=== PATIENT | male | born 1930 ===

== ENCOUNTER 2018-05-17 16:25 | Inpatient (IN) | payer MEDICARE ==
[2018-05-17] MEDS ORDERED: Albuterol-Ipratrop 3 mg / 0.5 (3 ml) UD INH STA (17:00)
[2018-05-17] MEDS ORDERED: Oseltamivir 6 MG/ML PO STA (17:07)
[2018-05-17] MEDS ORDERED: Albuterol-Ipratrop 3 mg / 0.5 (3 ml) UD ONE ×2 (17:15→17:51)
--- NOTE | 2018-05-17 17:27 | ED PDOC ---
HPI: CCC, URI, Sore Throat Time Seen by Provider: 05/17/18 16:41 Chief Complaint (Nursing): GI Problem Chief Complaint (Provider): GI Problem History Per: Patient History/Exam Limitations: no limitations Onset/Duration Of Symptoms: Days (x1 day ) Current Symptoms Are (Timing): Still Present Additional Complaint(s): Patient is an 87 year old male with a past medical history of emphysema and BPH, who presents to the emergency department complaining of flu like illness, associated with cough that is productive of a lot of phlegm, onset x1 day ago. Patient states that he has been feeling fatigue, malaise, body ache, mild runny nose. He further reveals that he developed vomiting and some fever today. Patient has excessive lethargy and states that he did not have a fever until he arrived at the ED. He denies taking any medication and states that he quit smoking x10 years ago. PMD: Giovanny Berry Past Medical History Reviewed: Historical Data, Nursing Documentation, Vital Signs Vital Signs: Last Vital Signs Temp 101.6 F H 05/17/18 16:28 Pulse 124 H 05/17/18 17:07 Resp 24 05/17/18 17:07 BP 158/87 H 05/17/18 17:07 Pulse Ox 99 05/17/18 17:07 - Medical History PMH: Benign Prostatic Hyperplasia, Colonic Polyps, Emphysema (USES ONLY INHALER), Fractures (LEFT WRIST), Gastritis, HTN (TAKES NO MEDS) Denies: Chronic Kidney Disease, Seizures, Sleep Apnea, TIA - Surgical History Surgical History: Endoscopy - Family History Family History: States: Unknown Family Hx - Social History Current smoker - smoking cessation education provided: No Ex-Smoker (has not smoked in the last 12 months): Yes (quit x10 years ago ) - Immunization History Hx Tetanus Toxoid Vaccination: No Hx Influenza Vaccination: No Hx Pneumococcal Vaccination: No - Home Medications Home Medications: Ambulatory Orders Medication Instructions Recorded Azithromycin [Zithromax Tri-Sarthak] 500 mg PO DAILY #5 tablet 05/19/18 Methylprednisolone [Medrol Dose 4 mg PO DAILY #21 mg 05/19/18 Pack (21 tabs)] - Allergies Allergies/Adverse Reactions: Allergies Allergy/AdvReac Type Severity Reaction Status Date / Time Penicillins Allergy Severe ANAPHYLAXIS Verified 05/17/18 16:28 Review of Systems ROS Statement: Except As Marked, All Systems Reviewed And Found Negative Constitutional: Positive for: Fever, Malaise, Other (body ache; fatigue) ENT: Positive for: Nose Discharge Respiratory: Positive for: Cough, Sputum Gastrointestinal: Positive for: Vomiting Physical Exam - Reviewed Nursing Documentation Reviewed: Yes Vital Signs Reviewed: Yes - Physical Exam Appears: Positive for: In Acute Distress (febrile) Head Exam: Positive for: ATRAUMATIC, NORMOCEPHALIC Skin: Positive for: Warm (febrile), Dry Eye Exam: Positive for: EOMI, PERRL Neck: Positive for: Painless ROM, Supple Cardiovascular/Chest: Positive for: Edema (trace), Tachycardia (with regular rhythm ). Negative for: Murmur Respiratory: Positive for: Wheezing (scattered wheeze), Respiratory Distress (acute), Other (poor air movement) Gastrointestinal/Abdominal: Positive for: Soft, Distended. Negative for: Tenderness, Guarding, Rebound Back: Positive for: Normal Inspection. Negative for: Muscle Spasm Extremity: Positive for: Other (trace bilateral lower leg) Lymphatic: Negative for: Adenopathy Neurologic/Psych: Positive for: Alert (lethargic but arousal), Oriented (x3). Negative for: Motor/Sensory Deficits - Laboratory Results Result Diagrams: 05/18/18 08:30 05/18/18 08:30 - ECG O2 Sat by Pulse Oximetry: 99 (RA) Pulse Ox Interpretation: Normal - Radiology X-Ray: Interpreted by [place] X-Ray Interpretation: No Acute Disease - Critical Care Total Time (In Min): 30 Documented Critical Care: Time excludes all time spent performint seperately billable procedures Medical Decision Making Medical Decision Making: Time: 1708 Impression: Febrille illness and bronchitis --Differenital diagnosis includes but is not limited to flu, PNA, sepsis, COPD exacerbation Plan: --Venous blood gas --EKG --CMP --Magnesium --Phosphorous --B-type Natriuretic --Troponin I --CBC with differential --PTT --PT --Blood culture --Urine culture --Urinalysis --Influenza A B --Peak flow Pre/Post tx --Chest xray --Tylenol 975 mg PO --Albuterol 9 ml INH --MethylPREDNISolone 125 mg IVP --Tamiflu 30 mg PO Labs demonstrate elevated lactic acid. No emergently significant abnormalities. Pt's lactic acid rising during ER stay. Addn'l fluids ordered. CT head, chest, abdomen with no acute findings except for gastroenteritis. [facility] for hospitalization. LOREN pt and family findings and plan of care. Scribe Attestation: Documented by Jadon Griffin, acting as a scribe for Georgia Covarrubias MD. Provider Scribe Attestation: All medical record entries made by the Scribe were at my direction and personally dictated by me. I have reviewed the chart and agree that the record accurately reflects my personal performance of the history, physical exam, medical decision making, and the department course for this patient. I have also personally directed, reviewed, and agree with the discharge instructions and disposition. Disposition - Clinical Impression Clinical Impression: Febrile illness, Sepsis, Bronchitis Counseled Patient/Family Regarding: Studies Performed, Diagnosis - Disposition Disposition Time: 21:00 Condition: FAIR - Pt Status Changed To: Hospital Disposition Of: Inpatient - Admit Certification Admit to Inpatient:: After my assessment, the patient will require hospitalization for at least two midnights. This is because of the severity of symptoms shown, intensity of services needed, and/or the medical risk in this patient being treated as an outpatient. - POA Present On Arrival: None
[2018-05-17 17:34] LABS: VENOUS BLOOD GAS BASE EXCESS -0.2 mmol/L (0.0-2.0); VENOUS BLOOD GAS PCO2 41 mmHg (40-60); VENOUS BLOOD GAS PO2 33 mm/Hg (30-55); VENOUS BLOOD PH 7.39 (7.32-7.43)
[2018-05-17 17:41] LABS: BASO % 0.2 % (0.0-2.0); EOS # 0.2 K/uL (0.0-0.7); EOS % 1.9 % (0.0-4.0); HEMOGLOBIN 13.6 g/dL (12.0-18.0); LYMPH # 0.2 K/uL (1.0-4.3); LYMPH % 2.5 % (20.0-40.0); MEAN CELL VOLUME 86.9 fl (80.0-94.0); MEAN CORPUSCULAR HEMOGLOBIN 29.1 pg (27.0-31.0); MEAN CORPUSCULAR HGB CONC 33.5 g/dL (33.0-37.0); MEAN PLATELET VOLUME 8.8 fl (7.2-11.7); MONO # 0.6 K/uL (0.0-0.8); MONO % 6.5 % (0.0-10.0); NEUT % 88.9 % (50.0-75.0); PLATELET COUNT 214 K/uL (130-400); RBC 4.67 Mil/uL (4.40-5.90); RED CELL DISTRIBUTION WIDTH 13.8 % (11.5-14.5)
[2018-05-17 17:55] LABS: ALB/GLOB RATIO 1.5 (1.0-2.1); ALBUMIN 4.4 g/dL (3.5-5.0); ALT/SGPT 41 U/L (21-72); AST/SGOT 71 U/L (17-59); BLOOD UREA NITROGEN 23 mg/dl (9-20); CALCIUM 9.2 mg/dL (8.4-10.2); GFR NON-AFRICAN AMERICAN > 60
[2018-05-17 17:57] LABS: INR 1.1; PROTHROMBIN TIME 12.8 Seconds (9.8-13.1)
[2018-05-17 17:59] LABS: PARTIAL THROMBOPLASTIN TIME 33.8 Seconds (25.6-37.1)
[2018-05-17 18:04] LABS: B-TYPE NATRIURETIC PEPTIDE 400 pg/ml (0-900)
[2018-05-17 18:17] LABS: GRANULAR CAST 1 /lpf (0-1); URINE BILIRUBIN NEGATIVE (NEGATIVE); URINE BLOOD SMALL (NEGATIVE); URINE CLARITY CLEAR (Clear); URINE COLOR YELLOW (YELLOW); URINE GLUCOSE (UA) NEG (NEGATIVE); URINE LEUKOCYTE ESTERASE NEG Leu/uL (Negative); URINE PROTEIN NEGATIVE (NEGATIVE); URINE UROBILINOGEN 0.2-1.0 mg/dL (0.2-1.0)
[2018-05-17] MEDS ORDERED: Sodium Chloride 0.9% 1,000 ML IV STA ×2 (19:05→21:20)
[2018-05-17 20:51] LABS: BANDS 5 % (0-2); HYPOCHROMIC SLIGHT; LYMPHOCYTE 5 % (20-50); MONOCYTE 6 % (0-10); NEUTROPHIL 84 % (42-75); PLATELET ESTIMATE NORMAL (NORMAL); TOTAL CELLS COUNTED 100; TOXIC GRANULATION PRESENT
[2018-05-17] MEDS ORDERED: Potassium & Sodium Phosphate PO STA (20:59)
[2018-05-17] MEDS ORDERED: Sodium Chloride 0.9% 500 ML IV STA (21:00)
[2018-05-17 21:19] LABS: ABG ALLEN TEST YES; ARTERIAL BLOOD GAS HCO3 21.3 mmol/L (21-28); ARTERIAL BLOOD GAS O2 SAT 99.9 % (95-98); ARTERIAL BLOOD GAS PCO2 31 mm/Hg (35-45); ARTERIAL BLOOD GAS PO2 115 mm/Hg (80-100); ARTERIAL BLOOD GAS TCO2 20.2 mmol/L (22-28)
[2018-05-17] MEDS ORDERED: levoFLOXacin 750 mg in D5W 150 ML BAG IVPB STA (21:21)
[2018-05-17] MEDS ORDERED: Iodixanol 320 MG/ML 100 ML BOTTLE IV ONE (21:46)
[2018-05-17] MEDS ORDERED: Sodium Chloride 0.9% 50 ML IV ONE (21:46)
[2018-05-17] MEDS ORDERED: levoFLOXacin 750 mg in D5W 750 MG/150 ML BAG IVPB ONE (22:11)
[2018-05-17] MEDS ORDERED: Absorbable Gelatin Sponge Size 12-7 ONE (22:47)
[2018-05-18] MEDS ORDERED: Pneumococcal 23-Valent Vaccine IM ONE (06:00)
[2018-05-18] MEDS ORDERED: Albuterol-Ipratrop 3 mg / 0.5 (3 ml) UD INH PRN (06:21)
[2018-05-18] MEDS ORDERED: methylPREDNISolone 60 MG in Sodium Chloride 0.9% 50 ML IVP SCH (06:30)
[2018-05-18 06:44] VITALS: BMI 26.8
[2018-05-18] MEDS: Sodium Chloride 0.9% 1,000 ML IV SCH ×2 (06:44→16:26)
[2018-05-18] MEDS: Budesonide 0.5 mg/2 ml Inhal Susp UD INH SCH ×2 (07:34→19:22)
[2018-05-18] MEDS: Enoxaparin 40 mg Syringe SC SCH (08:52)
[2018-05-18] MEDS: Azithromycin 500 MG in Sodium Chloride 0.9% 250 ML IVPB SCH (08:53)
--- NOTE | 2018-05-18 08:54 | CT ---
Date of service: 05/17/2018 PROCEDURE: CT HEAD WITHOUT CONTRAST. HISTORY: fall head injury COMPARISON: None available. TECHNIQUE: Axial computed tomography images were obtained through the head/brain without intravenous contrast. Radiation dose: Total exam DLP = 759.58 mGy-cm. This CT exam was performed using one or more of the following dose reduction techniques: Automated exposure control, adjustment of the mA and/or kV according to patient size, and/or use of iterative reconstruction technique. FINDINGS: HEMORRHAGE: No intracranial hemorrhage. BRAIN: No mass effect or edema. Mild diffuse age-appropriate cerebral atrophy. Patchy periventricular and deep/subcortical white matter lucency consistent with microvascular ischemic change. Right temporal encephalomalacia common nonspecific. This is associated with an old depressed fracture of the squamous portion of the right temporal bone. This is unchanged in appearance compared to the prior examination. No evidence of acute infarct. VENTRICLES: Unremarkable. No hydrocephalus. CALVARIUM: Old depressed fracture right temporal bone. No acute fracture. PARANASAL SINUSES: Mild chronic ethmoid sinusitis. MASTOID AIR CELLS: Unremarkable as visualized. No inflammatory changes. OTHER FINDINGS: None. IMPRESSION: No intracranial mass, hemorrhage or evidence of acute infarct. Right temporal encephalomalacia and old healed right temporal calvarial fracture. Chronic white matter ischemic change. Chronic ethmoid sinusitis. The preliminary findings for this examination were reported by [facility] at 10:37 p.m. on 05/17/2018. There is concurrence of this report with the preliminary findings.
[2018-05-18 08:56] LABS: BASO % 0.1 % (0.0-2.0); LYMPH # 0.3 K/uL (1.0-4.3); LYMPH % 3.1 % (20.0-40.0); MEAN CELL VOLUME 87.2 fl (80.0-94.0); MEAN CORPUSCULAR HEMOGLOBIN 29.1 pg (27.0-31.0); MEAN CORPUSCULAR HGB CONC 33.4 g/dL (33.0-37.0); MEAN PLATELET VOLUME 8.8 fl (7.2-11.7); MONO # 0.3 K/uL (0.0-0.8); MONO % 3.2 % (0.0-10.0); NEUT # 10.1 K/uL (1.8-7.0); NEUT % 93.6 % (50.0-75.0); PLATELET COUNT 183 K/uL (130-400); RBC 4.12 Mil/uL (4.40-5.90); WHITE BLOOD COUNT 10.8 K/uL (4.8-10.8)
[2018-05-18 09:24] LABS: ALB/GLOB RATIO 1.1 (1.0-2.1); ALBUMIN 3.2 g/dL (3.5-5.0); ALT/SGPT 110 U/L (21-72); AST/SGOT 130 U/L (17-59); BLOOD UREA NITROGEN 17 mg/dl (9-20); CALCIUM 8.3 mg/dL (8.4-10.2); GFR NON-AFRICAN AMERICAN > 60
[2018-05-18 10:01] LABS: BANDS 2 % (0-2); LYMPHOCYTE 3 % (20-50); MONOCYTE 7 % (0-10); NEUTROPHIL 88 % (42-75); PLATELET ESTIMATE NORMAL (NORMAL); TOTAL CELLS COUNTED 100
[2018-05-18 10:02] LABS: ANISOCYTOSIS SLIGHT; LARGE PLATELETS PRESENT; OVALOCYTES SLIGHT; TEARDROP CELLS SLIGHT
--- NOTE | 2018-05-18 10:15 | CT ---
Date of service: 05/17/2018 PROCEDURE: CT Abdomen and Pelvis without intravenous contrast HISTORY: abd distension vomitint COMPARISON: None. TECHNIQUE: Without contrast.. Contrast dose: 0 Radiation dose: Total exam DLP = 417.64 mGy-cm. This CT exam was performed using one or more of the following dose reduction techniques: Automated exposure control, adjustment of the mA and/or kV according to patient size, and/or use of iterative reconstruction technique. FINDINGS: LOWER THORAX: Subsegmental atelectasis in right middle lobe. No pleural effusion. LIVER: Unremarkable. No gross lesion or ductal dilatation. GALLBLADDER AND BILE DUCTS: Cholelithiasis. No mural thickening or pericholecystic fluid. PANCREAS: Unremarkable. No gross lesion or ductal dilatation. SPLEEN: Unremarkable. ADRENALS: Unremarkable. No mass. KIDNEYS AND URETERS: Right upper pole renal cortical cyst, 3.6 cm. This measures 5 Hounsfield units. Left lower pole exophytic cortical cyst, 1.8 cm. This measures 7 Hounsfield units. This has mildly thickened curvilinear mural calcification. Recommend further evaluation with pre and post contrast enhanced CT examination is advised.. VASCULATURE: Unremarkable. No aortic aneurysm. There is atherosclerotic calcification of the abdominal aorta. BOWEL: Unremarkable. No obstruction. No gross mural thickening. APPENDIX: Unremarkable. Normal appendix. PERITONEUM: Unremarkable. No free fluid. No free air. LYMPH NODES: Unremarkable. No enlarged lymph nodes. BLADDER: Unremarkable. REPRODUCTIVE: Normal prostate BONES: T7 vertebral compression fracture unchanged from chest radiograph of 02/22/2015. OTHER FINDINGS: None. IMPRESSION: Bilateral renal cortical cysts. Curvilinear mural calcification of the lower pole left renal cyst for which further evaluation with pre and post contrast enhanced CT examination is advised. Right middle lobe subsegmental atelectasis. Cholelithiasis without evidence of cholecystitis. Old T7 vertebral compression fracture. The preliminary findings for this examination were reported by [facility] at 8:10 p.m. on 05/17/2018.. There is discordance of this report with the preliminary findings. There is no evidence of gastroenteritis or colitis.
--- NOTE | 2018-05-18 11:39 | RAD ---
Date of service: 05/17/2018 HISTORY: sob COMPARISON: 02/22/2015. FINDINGS: LUNGS: The lungs are well inflated and clear. PLEURA: No pleural effusions or pneumothorax. CARDIOVASCULAR: The heart is normal in size. There are aortic atherosclerotic calcifications present. OSSEOUS STRUCTURES: Within normal limits for the patient's age. VISUALIZED UPPER ABDOMEN: Normal. OTHER FINDINGS: None. IMPRESSION: No active pulmonary disease.
--- NOTE | 2018-05-18 12:08 | CT ---
Date of service: 05/17/2018 PROCEDURE: CT Chest with contrast (Pulmonary Angiogram) HISTORY: tachycardia shortness of breat COMPARISON: Plain radiograph from 05/17/2018. TECHNIQUE: Axial computed tomography images were obtained of the chest in the pulmonary arterial phase of enhancement. Coronal and sagittal reformatted images were created and reviewed. Intravenous contrast dose: 75 mL Visipaque 320 Radiation dose: Total exam DLP = 325.23 mGy-cm. This CT exam was performed using one or more of the following dose reduction techniques: Automated exposure control, adjustment of the mA and/or kV according to patient size, and/or use of iterative reconstruction technique. FINDINGS: PULMONARY ARTERIES: There are no filling defects in the pulmonary arteries to suggest acute pulmonary embolism. AORTA: No acute findings. No thoracic aortic aneurysm. There are aortic atherosclerotic calcifications present. LUNGS: The lungs are well inflated and clear. There is subsegmental atelectasis in the lateral segment of the right middle lobe and in the lung bases. There are no endobronchial lesions. No nodule, mass or pulmonary consolidation. PLEURAL SPACES: No effusion or pneumothorax. HEART: No cardiomegaly. No significant pericardial effusion. LYMPH NODES: No pathologic mediastinal or hilar lymphadenopathy. BONES, CHEST WALL: There is diffuse bone demineralization and age indeterminate but likely chronic inferior endplate compression fracture deformity in the midthoracic spine. No acute fracture or destructive lesion OTHER FINDINGS: There are multiple calcified gallstones. There is a 3.4 x 3.0 cm simple cyst in the upper pole of the right kidney. There is a small sliding hiatal hernia. IMPRESSION: No CTA evidence for acute pulmonary embolism. Clear lungs. A preliminary report was provided by [facility].
[2018-05-18] MEDS: Promethazine 6.25 MG/5 ML CUP PO PRN ×2 (14:57→21:46)
[2018-05-18] MEDS: MethylPREDNISolone 40 mg Vial IV SCH (16:38)
--- NOTE | 2018-05-18 18:52 | CARD ---
APPROVED REPORT Date of service: 05/17/2018 EKG Measurement Heart [id number] <Conclusion> Sinus tachycardia Nonspecific ST abnormality Abnormal ECG
[2018-05-18 20:03] VITALS: RESP 18
[2018-05-19] MEDS: MethylPREDNISolone 40 mg Vial IV SCH ×2 (00:30→09:57)
--- NOTE | 2018-05-19 02:53 | CP.PCM.HP ---
History of Present Illness - History of Present Illness History of Present Illness: CC: Cough and wheezing HPI: An 87 year old male with a past medical history of emphysema and BPH, who presents to the emergency department complaining of flu like illness, associated with cough that is productive of a lot of phlegm, onset x1 day ago. Patient states that he has been feeling fatigue, malaise, body ache, mild runny nose. He further reveals that he developed vomiting and some fever today. Patient has excessive lethargy and states that he did not have a fever until he arrived at the ED. He denies taking any medication and states that he quit smoking x10 years ago. Present on Admission - Present on Admission Any Indicators Present on Admission: No Review of Systems - Review of Systems All systems: reviewed and no additional remarkable complaints except Review of Systems: as per HPI Past Patient History - Infectious Disease Hx of Infectious Diseases: None - Past Medical History & Family History Past Medical History?: Yes - Past Social History Smoking Status: Former Smoker Alcohol: None Drugs: Denies - CARDIAC Hx Cardiac Disorders: Yes (Hypertension) Hx Hypertension: Yes - PULMONARY Hx Respiratory Disorders: Yes (COPD) Hx Chronic Obstructive Pulmonary Disease (COPD): Yes - NEUROLOGICAL Hx Neurological Disorder: No Hx Seizures: No Hx Transient Ischemic Attacks (TIA): No - HEENT Hx HEENT Problems: No - RENAL Hx Chronic Kidney Disease: No - ENDOCRINE/METABOLIC Hx Endocrine Disorders: No - HEMATOLOGICAL/ONCOLOGICAL Hx Blood Disorders: Yes (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) Hx Chemotherapy: No - INTEGUMENTARY Hx Dermatological Problems: No - MUSCULOSKELETAL/RHEUMATOLOGICAL Hx Musculoskeletal Disorders: Yes Hx Falls: No Hx Fractures: Yes (LEFT WRIST) - GASTROINTESTINAL Hx Gastrointestinal Disorders: Yes Hx Gastritis: Yes - GENITOURINARY/GYNECOLOGICAL Hx Genitourinary Disorders: Yes (BPH) Hx Prostate Cancer: Yes - PSYCHIATRIC Hx Psychophysiologic Disorder: No Hx Substance Use: No - SURGICAL HISTORY Hx Surgeries: No - ANESTHESIA Hx Anesthesia: No (IV SEDATION ONLY) Hx Anesthesia Reactions: No Hx Malignant Hyperthermia: No Meds Home Medications: Home Medication List Medication Instructions Recorded Confirmed Type Azithromycin [Zithromax Tri-Sarthak] 500 mg PO DAILY #5 tablet 05/19/18 Rx Methylprednisolone [Medrol Dose 4 mg PO DAILY #21 mg 03/08/19 Rx Pack (21 tabs)] Allergies/Adverse Reactions: Allergies Allergy/AdvReac Type Severity Reaction Status Date / Time Penicillins Allergy Severe ANAPHYLAXIS Verified 05/17/18 16:28 Physical Exam - Constitutional Appears: Well, No Acute Distress - Head Exam Head Exam: ATRAUMATIC, NORMAL INSPECTION, NORMOCEPHALIC - Eye Exam Eye Exam: EOMI, Normal appearance, PERRL Pupil Exam: NORMAL ACCOMODATION, PERRL - ENT Exam ENT Exam: Mucous Membranes Moist, Normal Exam - Neck Exam Neck exam: Positive for: Normal Inspection - Respiratory Exam Respiratory Exam: Decreased Breath Sounds, Rales, Wheezes - Cardiovascular Exam Cardiovascular Exam: REGULAR RHYTHM - GI/Abdominal Exam GI & Abdominal Exam: Normal Bowel Sounds, Soft. absent: Tenderness - Rectal Exam Rectal Exam: NORMAL INSPECTION - Exam Exam: Circumcision, NORMAL INSPECTION External exam: NORMAL EXTERNAL EXAM Speculum exam: NORMAL SPECULUM EXAM Bimanual exam: NORMAL BIMANUAL EXAM - Extremities Exam Extremities exam: Positive for: normal inspection - Back Exam Back exam: NORMAL INSPECTION - Neurological Exam Neurological exam: Alert, CN II-XII Intact, Normal Gait, Oriented x3, Reflexes Normal - Psychiatric Exam Psychiatric exam: Normal Affect, Normal Mood - Skin Skin Exam: Dry, Intact, Normal Color, Warm Results - Vital Signs Recent Vital Signs: Last Vital Signs Temp 98.0 F 05/19/18 00:10 Pulse 76 05/19/18 00:10 Resp 18 05/19/18 00:10 BP 139/72 05/19/18 00:10 Pulse Ox 95 05/19/18 00:10 - Labs Result Diagrams: 05/18/18 08:30 05/18/18 08:30 Labs: Laboratory Results - last 24 hr 05/18/18 05/18/18 05/18/18 08:30 08:30 08:30 WBC 10.8 RBC 4.12 L Hgb 12.0 Hct 35.9 MCV 87.2 MCH 29.1 MCHC 33.4 RDW 14.0 Plt Count 183 MPV 8.8 Neut % (Auto) 93.6 H Lymph % (Auto) 3.1 L Kenton % (Auto) 3.2 Eos % (Auto) 0.0 Baso % (Auto) 0.1 Neut # (Auto) 10.1 H Lymph # (Auto) 0.3 L Kent[place] # (Auto) 0.3 Eos # (Auto) 0.0 Baso # (Auto) 0.0 Neutrophils % (Manual) 88 H Band Neutrophils % 2 Lymphocytes % (Manual) 3 L Monocytes % (Manual) 7 Platelet Estimate Normal Large Platelets Present Anisocytosis (manual) Slight Tear Drop Cells Slight Ovalocytes Slight Sodium 142 Potassium 4.2 Chloride 111 H Carbon Dioxide 22 Anion Gap 13 BUN 17 Creatinine 0.7 L Est GFR ( Amer) > 60 Est GFR (Non-Af Amer) > 60 Random Glucose 139 H Lactic Acid 1.1 Calcium 8.3 L Total Bilirubin 0.5 AST 130 H D ALT 110 H D Alkaline Phosphatase 94 Total Protein 6.2 L Albumin 3.2 L D Globulin 2.9 Albumin/Globulin Ratio 1.1 TSH 3rd Generation 0.70 - Imaging and Cardiology Chest x-ray Status: Report reviewed by me Additional comment: Date of service: 05/17/2018 HISTORY: sob COMPARISON: 02/22/2015. FINDINGS: LUNGS: The lungs are well inflated and clear. PLEURA: No pleural effusions or pneumothorax. CARDIOVASCULAR: The heart is normal in size. There are aortic atherosclerotic calcifications present. OSSEOUS STRUCTURES: Within normal limits for the patient's age. VISUALIZED UPPER ABDOMEN: Normal. OTHER FINDINGS: None. IMPRESSION: No active pulmonary disease. Assessment & Plan (1) Fever Status: Acute (2) URI (upper respiratory infection) Assessment and Plan: R/O PNA Status: Acute
[2018-05-19] MEDS: Sodium Chloride 0.9% 1,000 ML IV SCH (03:09)
[2018-05-19] MEDS: Budesonide 0.5 mg/2 ml Inhal Susp UD INH SCH (07:51)
[2018-05-19] MEDS ORDERED: Azithromycin 500 MG in Sodium Chloride 0.9% 250 ML IVPB SCH (09:30)
[2018-05-19] MEDS: Azithromycin 500 MG in Sodium Chloride 0.9% 250 ML IVPB SCH (09:44)
[2018-05-19] MEDS: Enoxaparin 40 mg Syringe SC SCH (09:46)
[2018-05-19 11:50] VITALS: BP 152/67; PULSE 97; TEMP 98.1
[2018-05-19 12:29] VITALS: O2SAT 99
--- NOTE | 2018-05-20 00:05 | CP.PCM.PN ---
Subjective - Date & Time of Evaluation Date of Evaluation: 05/19/18 Time of Evaluation: 10:15 - Subjective Subjective: No fever. improved. Objective - Vital Signs/Intake and Output Vital Signs (last 24 hours): Temp Pulse Resp BP Pulse Ox 98.1 F 97 H 18 152/67 H 99 05/19/18 11:49 05/19/18 11:49 05/19/18 11:49 05/19/18 11:49 05/19/18 12:31 - Labs Labs: 05/18/18 08:30 05/18/18 08:30 PT 12.8 Seconds (9.8-13.1) 05/17/18 17:25 INR 1.1 05/17/18 17:25 APTT 33.8 Seconds (25.6-37.1) 05/17/18 17:25 Assessment and Plan (1) Fever Status: Acute (2) URI (upper respiratory infection) Status: Acute
--- NOTE | 2018-05-20 00:07 | CP.PCM.DIS ---
Provider - Provider Date of Admission: 05/17/18 21:04 Attending physician: Rene Calzada MD Time Spent in preparation of Discharge (in minutes): 25 Diagnosis - Discharge Diagnosis (1) Fever Status: Acute (2) URI (upper respiratory infection) Status: Acute Hospital Course - Lab Results Lab Results: Micro Results 05/17/18 17:25 Blood-Venous Blood Culture - Preliminary NO GROWTH AFTER 48 HOURS 05/17/18 17:40 Blood-Venous Blood Culture - Preliminary NO GROWTH AFTER 48 HOURS 05/17/18 17:55 Urine Random Urine Culture - Final No Growth (<1,000 CFU/ML) 05/17/18 22:44 Throat Group A Strep Throat Culture - Final NO BETA STREP GROUP A ISOLATED. Most Recent Lab Values WBC 10.8 K/uL (4.8-10.8) 05/18/18 08:30 RBC 4.12 Mil/uL (4.40-5.90) L 05/18/18 08:30 Hgb 12.0 g/dL (12.0-18.0) 05/18/18 08:30 Hct 35.9 % (35.0-51.0) 05/18/18 08:30 MCV 87.2 fl (80.0-94.0) 05/18/18 08:30 MCH 29.1 pg (27.0-31.0) 05/18/18 08:30 MCHC 33.4 g/dL (33.0-37.0) 05/18/18 08:30 RDW 14.0 % (11.5-14.5) 05/18/18 08:30 Plt Count 183 K/uL (130-400) 05/18/18 08:30 MPV 8.8 fl (7.2-11.7) 05/18/18 08:30 Neut % (Auto) 93.6 % (50.0-75.0) H 05/18/18 08:30 Lymph % (Auto) 3.1 % (20.0-40.0) L 05/18/18 08:30 [place] % (Auto) 3.2 % (0.0-10.0) 05/18/18 08:30 Eos % (Auto) 0.0 % (0.0-4.0) 05/18/18 08:30 Baso % (Auto) 0.1 % (0.0-2.0) 05/18/18 08:30 Neut # (Auto) 10.1 K/uL (1.8-7.0) H 05/18/18 08:30 Lymph # (Auto) 0.3 K/uL (1.0-4.3) L 05/18/18 08:30 [place] # (Auto) 0.3 K/uL (0.0-0.8) 05/18/18 08:30 Eos # (Auto) 0.0 K/uL (0.0-0.7) 05/18/18 08:30 Baso # (Auto) 0.0 K/uL (0.0-0.2) 05/18/18 08:30 Neutrophils % (Manual) 88 % (42-75) H 05/18/18 08:30 Band Neutrophils % 2 % (0-2) 05/18/18 08:30 Lymphocytes % (Manual) 3 % (20-50) L 05/18/18 08:30 Monocytes % (Manual) 7 % (0-10) 05/18/18 08:30 Toxic Granulation Present 05/17/18 17:25 Platelet Estimate Normal (NORMAL) 05/18/18 08:30 Large Platelets Present 05/18/18 08:30 Hypochromasia (manual) Slight 05/17/18 17:25 Anisocytosis (manual) Slight 05/18/18 08:30 Tear Drop Cells Slight 05/18/18 08:30 Ovalocytes Slight 05/18/18 08:30 PT 12.8 Seconds (9.8-13.1) 05/17/18 17:25 INR 1.1 05/17/18 17:25 APTT 33.8 Seconds (25.6-37.1) 05/17/18 17:25 pCO2 31 mm/Hg (35-45) L 05/17/18 21:06 pO2 115 mm/Hg (80-100) H 05/17/18 21:06 HCO3 21.3 mmol/L (21-28) 05/17/18 21:06 ABG pH 7.40 (7.35-7.45) 05/17/18 21:06 ABG Total CO2 20.2 mmol/L (22-28) L 05/17/18 21:06 ABG O2 Saturation 99.9 % (95-98) H 05/17/18 21:06 ABG Base Excess -4.6 mmol/L (-2.0-3.0) L 05/17/18 21:06 [place] Test Yes 05/17/18 21:06 ABG Potassium 3.4 mmol/L (3.6-5.2) L 05/17/18 21:06 VBG pH 7.39 (7.32-7.43) 05/17/18 17:30 VBG pCO2 41 mmHg (40-60) 05/17/18 17:30 VBG HCO3 23.8 mmol/L 05/17/18 17:30 VBG Total CO2 26.1 mmol/L (22-28) 05/17/18 17:30 VBG O2 Sat (Calc) 70.9 % (40-65) H 05/17/18 17:30 VBG Base Excess -0.2 mmol/L (0.0-2.0) L 05/17/18 17:30 VBG Potassium 4.6 mmol/L (3.6-5.2) 05/17/18 17:30 A-a O2 Difference 82.0 mm/Hg 05/17/18 21:06 Sodium 135.0 mmol/L (132-148) 05/17/18 21:06 Chloride 104.0 mmol/L (98-107) 05/17/18 21:06 Glucose 205 mg/dL (75-110) H 05/17/18 21:06 Lactate 3.1 mmol/L (0.7-2.1) H 05/17/18 21:06 FiO2 33.0 % 05/17/18 21:06 Blood Gas Comments 3l/m nc,rr 05/17/18 21:06 Crit Value Read Back N 05/17/18 21:06 Sodium 142 mmol/l (132-148) 05/18/18 08:30 Potassium 4.2 MMOL/L (3.6-5.0) 05/18/18 08:30 Chloride 111 mmol/L (98-107) H 05/18/18 08:30 Carbon Dioxide 22 mmol/L (22-30) 05/18/18 08:30 Anion Gap 13 (10-20) 05/18/18 08:30 BUN 17 mg/dl (9-20) 05/18/18 08:30 Creatinine 0.7 mg/dl (0.8-1.5) L 05/18/18 08:30 Est GFR ( Amer) > 60 05/18/18 08:30 Est GFR (Non-Af Amer) > 60 05/18/18 08:30 POC Glucose (mg/dL) 143 mg/dL (65-110) H 05/17/18 16:44 Random Glucose 139 mg/dL (75-110) H 05/18/18 08:30 Lactic Acid 1.1 mmol/L (0.7-2.1) 05/18/18 08:30 Calcium 8.3 mg/dL (8.4-10.2) L 05/18/18 08:30 Phosphorus 2.2 mg/dl (2.5-4.5) L 05/17/18 17:25 Magnesium 2.0 MG/DL (1.6-2.3) 05/17/18 17:25 Total Bilirubin 0.5 mg/dl (0.2-1.3) 05/18/18 08:30 AST 130 U/L (17-59) H D 05/18/18 08:30 ALT 110 U/L (21-72) H D 05/18/18 08:30 Alkaline Phosphatase 94 U/L (38-126) 05/18/18 08:30 Troponin I 0.0140 ng/mL (0.00-0.120) 05/17/18 17:25 NT-Pro-B Natriuret Pep 400 pg/ml (0-900) 05/17/18 17:25 Total Protein 6.2 G/DL (6.3-8.2) L 05/18/18 08:30 Albumin 3.2 g/dL (3.5-5.0) L D 05/18/18 08:30 Globulin 2.9 gm/dL (2.2-3.9) 05/18/18 08:30 Albumin/Globulin Ratio 1.1 (1.0-2.1) 05/18/18 08:30 TSH 3rd Generation 0.70 mIU/ML (0.46-4.68) 05/18/18 08:30 Arterial Blood Potassium 3.4 mmol/L (3.6-5.2) L 05/17/18 21:06 Venous Blood Potassium 4.6 mmol/L (3.6-5.2) 05/17/18 17:30 Urine Color Yellow (YELLOW) 05/17/18 17:55 Urine Clarity Clear (Clear) 05/17/18 17:55 Urine pH 5.0 (5.0-8.0) 05/17/18 17:55 Ur Specific [place] 1.019 (1.003-1.030) 05/17/18 17:55 Urine Protein Negative mg/dL (NEGATIVE) 05/17/18 17:55 Urine Glucose (UA) Neg mg/dL (NEGATIVE) 05/17/18 17:55 Urine Ketones Negative mg/dL (NEGATIVE) 05/17/18 17:55 Urine Blood Small (NEGATIVE) 05/17/18 17:55 Urine Nitrate Negative (NEGATIVE) 05/17/18 17:55 Urine Bilirubin Negative (NEGATIVE) 05/17/18 17:55 Urine Urobilinogen 0.2-1.0 mg/dL (0.2-1.0) 05/17/18 17:55 Ur Leukocyte Esterase Neg [place]/uL (Negative) 05/17/18 17:55 Urine RBC (Auto) 5 /hpf (0-3) H 05/17/18 17:55 Urine Microscopic WBC < 1 /hpf (0-5) 05/17/18 17:55 Granular Casts (Auto) 1 /lpf (0-1) 05/17/18 17:55 Influenza Typ A,B (EIA) Negative for flu a/b (NEGATIVE) 05/17/18 17:25 Grp A Beta Strep Ag Negative (NEGATIVE) 05/17/18 22:44 Discharge Exam - Head Exam Head Exam: ATRAUMATIC, NORMOCEPHALIC Discharge Plan - Discharge Medications Prescriptions: Methylprednisolone [Medrol Dose Pack (21 tabs)] 4 mg PO DAILY #21 mg Azithromycin [Zithromax Tri-Sarthak] 500 mg PO DAILY #5 tablet - Follow Up Plan Condition: FAIR Disposition: HOME/ ROUTINE Instructions: Viral Upper Respiratory Infection, Adult (DC), Fever, Adult (DC) Additional Instructions: follow up with within 1 week Referrals: Giovanny Berry Jr., MD [Medical Doctor] - Rene Calzada MD [Staff Provider] -
== END 2018-05-19 13:17 | disposition home or self-care (01) | DRG 153 ==
LOC: H.ER 16:25 → H.ERHOLD 21:04 → H.TEL 05-18 00:14
PROVIDERS: ADMIT Internal Medicine; ATTEND Internal Medicine
PROC: 3E0234Z Introduction of Serum, Toxoid and Vaccine into Muscle, Percutaneous Approach (ICD-10-PCS; principal; 2018-05-18)
PROC: 3E02340 Introduction of Influenza Vaccine into Muscle, Percutaneous Approach (ICD-10-PCS; 2018-05-18)
DX: J06.9 Acute upper respiratory infection, unspecified (principal); Z87.891 Personal history of nicotine dependence; J43.9 Emphysema, unspecified; N40.0 Benign prostatic hyperplasia without lower urinary tract symptoms; K29.70 Gastritis, unspecified, without bleeding; Z88.0 Allergy status to penicillin; Z23 Encounter for immunization